=== PATIENT | female | born 2000 | race Caucasian/White ===

== ENCOUNTER → 2025-07-14 | Outpatient (REF) | payer OTHER ==
[2025-07-14 13:04] LABS: BASO # 0.1 10^3/uL (0.0-0.2); BASO % 0.6 % (0.0-1.0); EOS # 0.2 10^3/uL (0.0-0.5); EOS % 1.4 % (0.0-3.0); LYMPH # 2.5 10^3/uL (1.5-5.0); LYMPH % 19.8 % (24.0-44.0); MONO # 0.6 10^3/uL (0.0-0.8); MONO % 4.7 % (2.0-8.0); NEUTROPHILS # 9.2 10^3/uL (1.5-8.5); NEUTROPHILS % 73.0 % (36.0-66.0); PLATELET COUNT, AUTOMATED 444 10^3/uL (150-450)
[2025-07-14 13:09] LABS: ALT/SGPT 16 U/L (7.0-40); AST/SGOT 16 U/L (<34); CALCIUM LEVEL 8.8 MG/DL (8.5-10.1); CARBON DIOXIDE LEVEL 26 MMOL/L (20-31); CHLORIDE LEVEL 105 MMOL/L (98-107); CHOLESTEROL LEVEL 147 MG/DL (<200); CHOLESTEROL RISK RATIO 3.78 (<5); CREATININE FOR GFR 0.84 MG/DL (0.55-1.30); GLOMERULAR FILTRATION RATE > 90.0 (>60); LDL CHOLESTEROL 92.2 MG/DL (<100); NON-HDL-C 108.2 MG/DL; POTASSIUM SERUM 4.4 MMOL/L (3.5-5.1); SODIUM LEVEL 141 MMOL/L (136-145); TRIGLYCERIDES LEVEL 80 MG/DL (<150)
[2025-07-14 13:14] LABS: TOTAL 25(OH) VITAMIN D 48.8 NG/ML (20.0-100.0)
[2025-07-14 13:22] LABS: ESTIMATED AVERAGE GLUCOSE 126.0 MG/DL (60-110)
[2025-07-14 13:43] LABS: HIV 1&2 SCREEN NEGATIVE (NEGATIVE)
[2025-07-14 13:51] LABS: HEPATITIS C VIRUS ABY INDEX 0.04 INDEX (<0.8)
== END ==
LOC: M LAB REF 12:08
PROVIDERS: ATTEND Nurse Practitioner Family
DX: E66.3 Overweight (principal); R53.83 Other fatigue; Z11.9 Encounter for screening for infectious and parasitic diseases, unspecified; E55.9 Vitamin D deficiency, unspecified

== ENCOUNTER → 2025-08-25 | Outpatient (CLI) | payer OTHER | LOC: M EKG 11:58 | PROVIDERS: ATTEND Nurse Practitioner Family | DX: Q24.9 Congenital malformation of heart, unspecified (principal) ==